=== PATIENT | female | born 1935 | race African-American/Black ===

== ENCOUNTER 2017-01-06 12:36 | Outpatient (CLI) | payer MEDICARE ==
--- NOTE | 2017-01-07 13:21 | Mammography Report ---
Bilateral mammogram: Compared to 12/29/15. CAD study utilized. Findings: Predominance of adipose tissue. Benign calcifications bilaterally. No distinct mass. No microcalcification. Benign axilla. Impression: Findings annual followup recommended. BI-RADS CATEGORY: 2 = Benign ACR BI-RADS MAMMOGRAPHIC CODES: 0 = Needs additional imaging evaluation; 1 = Negative; 2 = Benign; 3 = Probably benign; 4 = Suspicious; 5 = Malignant; 6 = Known biopsy-proven malignancy COMMENT: 1. Dense breast tissue, i.e., adenosis, fibrocystic changes, etc., may obscure an underlying neoplasm. 2. Approximately 10% of cancers are not detected with mammography. 3. A negative mammography report should not delay biopsy if a clinically suspicious mass is present. COMMENT: Patient follow-up letters are generated in [employer].
== END 2017-01-06 12:37 | disposition home or self-care (01) ==
LOC: MAMMO 12:36
PROVIDERS: ATTEND Internal Medicine
DX: Z12.31 Encounter for screening mammogram for malignant neoplasm of breast (principal); I10 Essential (primary) hypertension; E78.00 Pure hypercholesterolemia, unspecified; E03.9 Hypothyroidism, unspecified
CPT/HCPCS: 77067; G0202

== ENCOUNTER 2017-02-05 09:07 | Outpatient (CLI) | payer MEDICARE ==
--- NOTE | 2017-02-05 14:44 | Ultrasound Report ---
ULTRASOUND PELVIC COMPLETE History: Incomplete uterine-vaginal prolapse Findings: Transabdominal ultrasound imaging was performed in the pelvis. The bladder is normal. The uterus is anteverted and measures 7 x 3 x 4 cm. No uterine mass is identified. The endometrial stripe measures less than 5 mm. The ovaries are not visualized. The patient refused transvaginal imaging. The technologist noted soft tissues protruding through the vagina. Impression: Unremarkable uterus. The ovaries are not visualized. Prolapse was witnessed by the technologist, see above.
== END 2017-02-05 09:08 | disposition home or self-care (01) ==
LOC: US 09:07
PROVIDERS: ATTEND Obstetrics & Gynecology Gynecology
DX: N81.2 Incomplete uterovaginal prolapse (principal); N94.89 Other specified conditions associated with female genital organs and menstrual cycle
CPT/HCPCS: 76856

== ENCOUNTER 2018-06-15 06:36 | Day surgery (SDC) | payer MEDICARE ==
[2018-06-15] MEDS ORDERED: XYLOCAINE 2% INFILTRATI ONE (07:13)
[2018-06-15] MEDS ORDERED: DIPRIVAN 10 MG/ML IV ONE ×2 (07:13)
--- NOTE | 2018-06-15 07:29 | Anesthesia Consultation ---
Anesthesia Consult and Med Hx Date of service: 06/15/18 - Airway Anesthetic Teeth Evaluation: Good ROM Head & Neck: Adequate Mental/Hyoid Distance: Adequate Mallampati Class: Class II Intubation Access Assessment: Probably Good - Pulmonary Exam CTA: Yes - Cardiac Exam Cardiac Exam: RRR - Pre-Operative Health Status ASA Pre-Surgery Classification: ASA2 Proposed Anesthetic Plan: MAC - Cardiovascular System Hx Hypertension: Yes Hx Heart Murmur: Yes (1/6 systolic) - Endocrine Hx Hypothyroidism: Yes
--- NOTE | 2018-06-15 07:30 | Anesthesia Day of Surgery ---
Anesthesia Day of Surgery - Day of Surgery Patient Examined: Yes Patient H&P Reviewed: Yes Patient is NPO: Yes
[2018-06-15] MEDS ORDERED: WATER FOR IRRIG STERILE IR ONE (07:35)
[2018-06-15] MEDS ORDERED: WATER FOR IRRIG STERILE ONE (07:36)
[2018-06-15] MEDS ORDERED: NACL 0.9% 1000 ML 1,000 ML IV SCH (08:00)
--- NOTE | 2018-06-15 08:34 | Procedure Note ---
Date of procedure: 06/15/18 Pre-op diagnosis: H/O Rectal Adenocarcinoma Post-op diagnosis: other (S/P Resection for Adenocarcinoma/ Minor,Left Colon Diverticular Disease/ Minor, Internal Hemorrhoid/ No Colonos Polyps noted/ Pre was fair to poor.) Procedure: Colonoscopy Anesthesia: MAC Surgeon: EVELIO MORALES Estimated blood loss: none Pathology: none Condition: stable Disposition: same day (Encourage fiber intake. Resume home medication and follow up in 1 to 2 weeks ([phone]).)
[2018-06-15 09:09] VITALS: BP 131/66
--- NOTE | 2018-06-15 11:35 | Operative Report ---
PROCEDURE: Colonoscopy. INDICATIONS: This is an 82-year-old female originally from [place], who had a colonoscopy done for GI bleeding and some associated weight loss, back in 2016. At that time, she was noted to have a rectal lesion, which came back as being an adenocarcinoma and subsequently she has had a surgery for the adenocarcinoma including chemotherapy and radiation. Repeat colonoscopy is being done to make sure that there has not been any recurrence of any lesions. DESCRIPTION OF PROCEDURE: Procedure was done after getting informed consent with MAC anesthesia. Initial rectal exam was unremarkable. Instrument was passed through the rectum onto the cecum, which was identified by the ileocecal valve and the appendiceal orifice. Visualization was fair to slightly poor. The mucosa was washed with copious amounts of water. There was no significant pathology noted in the cecum, ascending colon and transverse colon as well as the descending colon and most of the sigmoid. There was an area of surgery that was noted in the rectosigmoid area and there were a few scattered diverticula noted in the left colon. The anastomotic site appeared good. The sutures were noted to be in place and there was no abnormality noted. There were minimal internal hemorrhoids noted. ASSESSMENT: History of rectal cancer, status post surgery and anastomotic site appeared to be normal. Scattered left colon diverticular disease, minor internal hemorrhoids. Visualization was fair to slightly poor. The mucosa was washed with copious amounts of water. There was no bleeding associated with the procedure. No complications associated with the procedure. Plan is to encourage fiber supplements and have the patient follow up in the office in 1-2 weeks' time. Sun PERKINS was in the room throughout the entirety of the procedure. JOB# [id number] NATE/CARLA
--- NOTE | 2018-06-15 11:48 | Post Anesthesia Evaluation ---
- Post Anesthesia Evaluation Patient Participated: Yes Airway Patent: Yes Stable Respiratory Function: Yes Temp > 96.8F: Yes Pain Manageable: Yes Adequeate Hydration: Yes Anesthesia Complications: No
== END 2018-06-15 06:37 | disposition home or self-care (01) ==
LOC: GIO 06:36
DX: Z12.11 Encounter for screening for malignant neoplasm of colon (principal); K57.30 Diverticulosis of large intestine without perforation or abscess without bleeding; K64.8 Other hemorrhoids; I10 Essential (primary) hypertension; M19.90 Unspecified osteoarthritis, unspecified site; E03.9 Hypothyroidism, unspecified; Z98.890 Other specified postprocedural states; Z80.0 Family history of malignant neoplasm of digestive organs; Z88.2 Allergy status to sulfonamides; Z88.8 Allergy status to other drugs, medicaments and biological substances; Z79.01 Long term (current) use of anticoagulants; Z79.899 Other long term (current) drug therapy
CPT/HCPCS: G0105; J2704; J7030

== ENCOUNTER 2018-12-07 11:05 | Outpatient (CLI) | payer MEDICARE ==
[2018-12-07 11:40] LABS: Hematocrit 36.4 % (30.3-42.9); Hemoglobin 12.6 gm/dl (10.1-14.3); Mean Corpuscular HGB Conc 35 % (30-34); Mean Corpuscular Volume 92 fl (79-97); Platelet Count 152 K/mm3 (140-440); Red Blood Count 3.97 M/mm3 (3.65-5.03); Red Cell Distribution Width 13.5 % (13.2-15.2)
[2018-12-07 12:07] LABS: Alanine Aminotransferase 16 units/L (7-56); Albumin 4.4 g/dL (3.9-5); BUN/Creatinine Ratio 26; Blood Urea Nitrogen 13 mg/dL (7-17); Calcium 9.2 mg/dL (8.4-10.2); Erythrocyte Sedimentation Rate 12 mm/Hr (0-20); Hemolysis Index 4
[2018-12-10 13:49] LABS: Vitamin D, 25-OH, D2 <4 ng/mL
[2018-12-12 13:08] LABS: ANA Screen, IFA Positive (Negative)
== END 2018-12-07 11:06 | disposition home or self-care (01) ==
LOC: LAB 11:05
PROVIDERS: ATTEND Specialist
DX: G62.9 Polyneuropathy, unspecified (principal); F02.80 Dementia in other diseases classified elsewhere, unspecified severity, without behavioral disturbance, psychotic disturbance, mood disturbance, and anxiety; I10 Essential (primary) hypertension; E78.00 Pure hypercholesterolemia, unspecified; E03.9 Hypothyroidism, unspecified; G61.1 Serum neuropathy; R79.89 Other specified abnormal findings of blood chemistry; Z11.59 Encounter for screening for other viral diseases
CPT/HCPCS: 36415; 80053; 82306; 82607; 83036; 83921; 84443; 85027; 85652; 86038; 86225; 86334; 86592

== ENCOUNTER 2019-01-08 10:50 | Outpatient (CLI) | payer MEDICARE ==
--- NOTE | 2019-01-08 13:52 | Mammography Report ---
DIGITAL SCREENING MAMMOGRAM WITH CAD, 01/08/2019 INDICATION: Routine screening mammography. TECHNIQUE: Digital bilateral 2D mammography was obtained in the craniocaudal and mediolateral obliq ue projections. This examination was interpreted with the benefit of Computer-Aided Detection analysi s. COMPARISON: 01/07/2018 FINDINGS: Breast Density: The breasts are heterogeneously dense, which may obscure small masses. There is no evidence of dominant mass, suspicious calcifications or architectural distortion in eithe r breast. Bilateral benign arterial calcifications. IMPRESSION: No mammographic evidence of malignancy. Follow up recommendation: Routine yearly BI-RADS Category 2: Benign. A "normal" or negative report should not discourage follow up or biopsy of a clinically significant f inding. A written summary of these findings will be mailed to the patient. The patient will be entered into a mammography reporting system which will generate a reminder letter for the patient's next appointmen t at the appropriate interval. The [employer] recommends yearly mammograms starting at age 40 and continuing as l danielle as a woman is in good health. Breast MRI is recommended for women with an approximate 20-25% or greater lifetime risk of breast cancer, including women with a strong family history of breast or ova talat cancer or who have been treated for Hodgkin's disease. Signer Name: Buck Gama MD Signed: 01/08/2019 1:47 PM Workstation Name: [id number]
== END 2019-01-08 10:51 | disposition home or self-care (01) ==
LOC: MAMMO 10:50
PROVIDERS: ATTEND Internal Medicine
DX: Z12.31 Encounter for screening mammogram for malignant neoplasm of breast (principal); I10 Essential (primary) hypertension; E03.9 Hypothyroidism, unspecified; E78.00 Pure hypercholesterolemia, unspecified
CPT/HCPCS: 77067

== ENCOUNTER 2019-04-23 23:56 | Emergency (ER) | payer MEDICARE ==
[2019-04-24 00:48] VITALS: BP 149/57
--- NOTE | 2019-04-24 01:31 | Emergency Department Report ---
ED General Adult HPI - General Chief complaint: Extremity Problem,Nontraumatic Stated complaint: BACK PAIN/POST SURGERY Time Seen by Provider: 04/24/19 00:55 Source: patient, EMS Mode of arrival: Stretcher Limitations: No Limitations - History of Present Illness Initial comments: Patient is a 3-year-old female who had surgery on her L4-L5 vertebrae earlier today was complaining of some bleeding of her wound. Patient had a Vertiflex Superion Procedure. The patient states her pain is under control and she noticed some blood on her binder. Patient was told to come to the emergency department she had any complications. - Related Data Home Medications Medication Instructions Recorded Confirmed Last Taken Levothyroxine 50 mcg PO DAILY 02/06/16 06/15/18 06/13/18 amLODIPine 5 mg PO DAILY 02/06/16 06/15/18 06/15/18 Alendronate Sodium 70 mg PO QWEEK 06/15/18 06/15/18 06/06/18 Simvastatin 40 mg PO DAILY 06/15/18 06/15/18 06/13/18 Allergies Allergy/AdvReac Type Severity Reaction Status Date / Time clove AdvReac Unknown Verified 02/06/16 12:07 Sulfa (Sulfonamide AdvReac Unknown Verified 02/06/16 12:07 Antibiotics) B COMPLEX AdvReac Unknown Uncoded 02/06/16 11:19 CUMMIN AdvReac Unknown Uncoded 02/06/16 11:19 SUSAN AdvReac Unknown Uncoded 02/06/16 11:19 ED Review of Systems ROS: Stated complaint: BACK PAIN/POST SURGERY Other details as noted in HPI Comment: All other systems reviewed and negative ED Past Medical Hx - Past Medical History Previous Medical History?: Yes Hx Hypertension: Yes Hx Arthritis: Yes - Surgical History Past Surgical History?: Yes Additional Surgical History: Vertiflex Superion procedure - Social History Smoking Status: Never Smoker - Medications Home Medications: Home Medications Medication Instructions Recorded Confirmed Last Taken Type Levothyroxine 50 mcg PO DAILY 02/06/16 06/15/18 06/13/18 History amLODIPine 5 mg PO DAILY 02/06/16 06/15/18 06/15/18 History Alendronate Sodium 70 mg PO QWEEK 06/15/18 06/15/18 06/06/18 History Simvastatin 40 mg PO DAILY 06/15/18 06/15/1819 History ED Physical Exam - General Limitations: No Limitations General appearance: alert, in no apparent distress - Head Head exam: Present: atraumatic, normocephalic - Respiratory Respiratory exam: Absent: respiratory distress - Cardiovascular Cardiovascular Exam: Present: regular rate, normal rhythm - Skin Skin exam: Present: other (patient's lower back has a bloodsoaked gauze over top the wound. After removing the gauze patient has [address] There is no active bleeding. There does not appear to be any bulging of the skin.) ED Course Vital Signs 04/24/19 00:40 Temperature 97.6 F Pulse Rate 71 Respiratory 20 Rate Blood Pressure 149/57 Blood Pressure 149/57 [Left] O2 Sat by Pulse 98 Oximetry ED Medical Decision Making - Medical Decision Making Patient likely had a small hematoma which self evacuated. Patient is showing no evidence of any further bleeding at this time. Patient wound was redressed with Steri-Strips and gauze and was completely covered. Patient stable for discharge. Critical care attestation.: If time is entered above; I have spent that time in minutes in the direct care of this critically ill patient, excluding procedure time. ED Disposition Clinical Impression: Postoperative wound hematoma Disposition: DC-01 TO HOME OR SELFCARE Is pt being admited?: No Does the pt Need Aspirin: No Condition: Stable Additional Instructions: Please continue with the instructions that were given after surgery. Likely had a small hematoma under the skin which drained itself. There is no active bleeding seen in the emergency department. Time of Disposition: 01:31
== END 2019-04-24 01:55 | disposition home or self-care (01) ==
LOC: ED 23:56
DX: T81.49XA Infection following a procedure, other surgical site, initial encounter (principal); B99.8 Other infectious disease; I10 Essential (primary) hypertension; M19.90 Unspecified osteoarthritis, unspecified site; Z88.2 Allergy status to sulfonamides; Z91.018 Allergy to other foods; Z79.899 Other long term (current) drug therapy; X58.XXXA Exposure to other specified factors, initial encounter

== ENCOUNTER 2020-01-10 11:04 | Outpatient (CLI) | payer MEDICARE ==
--- NOTE | 2020-01-10 13:03 | Mammography Report ---
DIGITAL SCREENING MAMMOGRAM WITH CAD, 01/10/2020 INDICATION: Routine screening mammography. TECHNIQUE: Digital bilateral 2D mammography was obtained in the craniocaudal and mediolateral obliq ue projections. This examination was interpreted with the benefit of Computer-Aided Detection analysi s. COMPARISON: 01/08/2019 FINDINGS: Breast Density: The breasts are heterogeneously dense, which may obscure small masses. There is no evidence of dominant mass, suspicious calcifications or architectural distortion in eithe r breast. Benign bilateral vascular calcifications are present. Overall, no interval change. IMPRESSION: No evidence of malignancy. Follow up recommendation: Routine yearly BI-RADS Category 2: Benign. A "normal" or negative report should not discourage follow up or biopsy of a clinically significant f inding. A written summary of these findings will be mailed to the patient. The patient will be entered into a mammography reporting system which will generate a reminder letter for the patient's next appointmen t at the appropriate interval. The [employer] recommends yearly mammograms starting at age 40 and continuing as l danielle as a woman is in good health. Breast MRI is recommended for women with an approximate 20-25% or greater lifetime risk of breast cancer, including women with a strong family history of breast or ova talat cancer or who have been treated for Hodgkin's disease. Signer Name: Maria D Bolanos MD Signed: 01/10/2020 12:59 PM Workstation Name: [id number]
== END 2020-01-10 11:05 | disposition home or self-care (01) ==
LOC: MAMMO 11:04
PROVIDERS: ATTEND Internal Medicine
DX: Z12.31 Encounter for screening mammogram for malignant neoplasm of breast (principal); N64.89 Other specified disorders of breast
CPT/HCPCS: 77067

== ENCOUNTER 2021-01-10 07:59 | Outpatient (CLI) | payer MEDICARE ==
--- NOTE | 2021-01-10 10:42 | Mammography Report ---
DIGITAL SCREENING MAMMOGRAM WITH CAD, 01/10/2021 CLINICAL INFORMATION / INDICATION: Routine screening mammography. TECHNIQUE: Digital bilateral 2D mammography was obtained in the craniocaudal and mediolateral obliqu e projections. This examination was interpreted with the benefit of Computer-Aided Detection analysis . COMPARISON: 01/10/2020, 01/08/2019 FINDINGS: Breast Density: The breasts are heterogeneously dense, which may obscure small masses. No dominant mass, suspicious calcifications, or architectural distortion in either breast. Benign vascular calcifications are present bilaterally. Overall, no interval change in the appearance of the mammogram. IMPRESSION: No mammographic evidence of malignancy. Follow up recommendation: Routine yearly BI-RADS Category 2: Benign. A "normal" or negative report should not discourage follow up or biopsy of a clinically significant f inding. A written summary of these findings will be mailed to the patient. The patient will be entered into a mammography reporting system which will generate a reminder letter for the patient's next appointmen t at the appropriate interval. The [employer] recommends yearly mammograms starting at age 40 and continuing as l danielle as a woman is in good health. Breast MRI is recommended for women with an approximate 20-25% or greater lifetime risk of breast cancer, including women with a strong family history of breast or ova talat cancer or who have been treated for Hodgkin's disease. Signer Name: Maria D Bolanos MD Signed: 01/10/2021 10:38 AM Workstation Name: [id number]
== END 2021-01-10 08:00 | disposition home or self-care (01) ==
LOC: MAMMO 07:59
PROVIDERS: ATTEND Internal Medicine
DX: Z12.31 Encounter for screening mammogram for malignant neoplasm of breast (principal); N64.89 Other specified disorders of breast
CPT/HCPCS: 77067